=== PATIENT | male | born 1945 | race Caucasian/White ===

== ENCOUNTER 2018-09-14 10:15 | Emergency (ER) | payer MEDICARE, BC ==
[~2018-09-14] VITALS: Ht 188 cm; Wt 108.4 kg
[2018-09-14 10:17] VITALS: BP 166/83
--- NOTE | 2018-09-14 11:20 | NUR ---
MANAGER INVENTORY: PT TO ROOM FROM SHIRA BAUER
[2018-09-14 12:02] LABS: BASOPHILS % (AUTO) 1 % (0-1); EOSINOPHILS # (AUTO) 0.18 x10^3/uL (0-0.4); EOSINOPHILS % (AUTO) 2 % (1-7); LYMPHOCYTES # (AUTO) 1.35 x10^3/uL (1-3.4); LYMPHOCYTES % (AUTO) 13 % (22-44); MD NO; MEAN CORPUSCULAR HEMOGLOBIN 32.2 pg (27.5-34.5); MEAN CORPUSCULAR HGB CONC 32.2 g/dL (33.2-36.2); MEAN CORPUSCULAR VOLUME 99.9 fL (81-97); MEAN PLATELET VOLUME 8.6 fL (7.4-10.4); MONOCYTES % (AUTO) 7 % (2-9); NEUTROPHILS % (AUTO) 78 % (42-75); PLATELET COUNT 282 x10^3/uL (130-400); RED CELL DISTRIBUTION WIDTH 15.1 % (9.4-14.8)
[2018-09-14 12:10] LABS: ALBUMIN 3.7 g/dL (3.4-5.0); ANION GAP 8 mmol/L (5-15); CALCIUM 9.2 mg/dL (8.5-10.1); CHLORIDE 101 mmol/L (98-107); CREATININE 0.97 mg/dL (0.7-1.3)
[2018-09-14 12:45] LABS: MICROSCOPIC NOT IND
--- NOTE | 2018-09-14 12:45 | NUR ---
Enema instilled, commode at bedside, call light in reach. Pt tolerating well at this time. Instructed to call for assistance.
[2018-09-14 12:49] LABS: CULTURE INDICATED? NO
== END 2018-09-14 15:14 | disposition home or self-care (01) ==
LOC: ED 14:00
DX: K59.00 Constipation, unspecified (principal); I10 Essential (primary) hypertension; E11.9 Type 2 diabetes mellitus without complications; E78.5 Hyperlipidemia, unspecified; E03.9 Hypothyroidism, unspecified; I25.2 Old myocardial infarction; Z87.891 Personal history of nicotine dependence
CPT/HCPCS: 36415; 74021; 80048; 81003; 82040; 85025; 99284